=== PATIENT | male | born 1940 | race Caucasian/White ===

== ENCOUNTER 2022-05-02 09:13 | Outpatient (CLI) | payer MEDICARE | END 2022-05-02 09:14 | disposition home or self-care (01) | LOC: CSHCT 09:13 | PROVIDERS: ATTEND Otolaryngology Plastic Surgery within the Head & Neck | DX: H90.3 Sensorineural hearing loss, bilateral (principal) | CPT/HCPCS: 70480 ==

== ENCOUNTER 2022-07-18 09:59 | Outpatient (CLI) | payer MEDICARE ==
[2022-07-18 11:52] LABS: Hemoglobin 15.1 g/dL (13.5-17.5)
[2022-07-18 12:17] LABS: Anion Gap 13 mmol/L (10-20); BUN (Urea Nitrogen) 12 mg/dL (8.4-25.7); Calc. Creatinine Clearance 0 mL/min (70-130); Carbon Dioxide 27 mmol/L (23-31); Chloride 103 mmol/L (98-107); Estimated GFR 91; Glucose 91 mg/dL (83-110); Potassium 4.8 mmol/L (3.5-5.1); Sodium 138 mmol/L (136-145)
== END 2022-07-18 10:00 | disposition home or self-care (01) ==
LOC: CSHLAB 09:59
PROVIDERS: ATTEND Otolaryngology Plastic Surgery within the Head & Neck
DX: Z01.818 Encounter for other preprocedural examination (principal); H90.42 Sensorineural hearing loss, unilateral, left ear, with unrestricted hearing on the contralateral side; H90.3 Sensorineural hearing loss, bilateral
CPT/HCPCS: 80048; 85014; 85018

== ENCOUNTER 2022-07-21 06:39 | Day surgery (SDC) | payer MEDICARE ==
[2022-07-19 15:16] VITALS: BMI 23.6
[2022-07-21] MEDS ORDERED: PROPOFOL 20 ML ONE (09:21)
[2022-07-21] MEDS ORDERED: Fentanyl 250 MCG/5 ML VIAL ONE (09:21)
[2022-07-21] MEDS ORDERED: Midazolam HCl 2 mg/2 ml Vial ONE (09:21)
[2022-07-21] MEDS ORDERED: Ondansetron PF 4 MG/2 ML Vial ONE (09:21)
[2022-07-21] MEDS ORDERED: Dexamethasone 20 MG/5 ML VIAL ONE (09:21)
[2022-07-21] MEDS ORDERED: Rocuronium Bromide 10 MG/ML (10ML VIAL) ONE (09:21)
[2022-07-21] MEDS ORDERED: Lidocaine 2% PF 5 ML VIAL ONE (09:22)
[2022-07-21] MEDS ORDERED: CEFAZOLIN 1 GM VIAL ONE (09:26)
[2022-07-21] MEDS ORDERED: EPINEPHrine 1 MG/ML AMP ONE (09:27)
[2022-07-21] MEDS ORDERED: PHENYLEPHRINE-NS 100 MCG/ML 10 ML SYRINGE ONE (09:55)
[2022-07-21] MEDS ORDERED: ePHEDrine Sulfate 50 MG/10 ML VIAL ONE (10:06)
[2022-07-21] MEDS ORDERED: Mupirocin 2% Ointment 22 GM Tube ONE (11:46)
== END 2022-07-21 13:35 | disposition home or self-care (01) ==
LOC: CSHSDC 06:39
PROVIDERS: ATTEND Otolaryngology Plastic Surgery within the Head & Neck
PROC: 09H Ear, Nose, Sinus, Insertion (ICD-10-PCS; principal; 2022-07-21)
DX: H90.42 Sensorineural hearing loss, unilateral, left ear, with unrestricted hearing on the contralateral side (principal)
CPT/HCPCS: 69930; 70260; L8614 ×2; J0171; J0690; J1100; J2001; J2250; J2405; J2704; J3010; Q9968